=== PATIENT | female | born 1960 | race Caucasian/White ===

== ENCOUNTER 2020-11-15 11:56 | Inpatient (IN) | payer MEDICAID, OTHER ==
[~2020-11-15] VITALS: Ht 149.9 cm; Wt 46.4 kg
[2020-11-15 12:37] LABS: Basophils # (auto) 0 10 ^3/uL (0-0.2); Basophils % (auto) 0.3 % (0.0-2.0); Eosinophils # (auto) 0 10 ^3/uL (0-0.8); Hematocrit 40.2 % (36.0-46.0); Lymphocytes # (auto) 0.8 10 ^3/uL (0.4-5.4); Lymphocytes % (auto) 16.6 % (10.0-50.0); Mean Corpuscular Hemoglobin 29.3 pg (28.0-32.0); Mean Corpuscular Volume 83.7 fL (80.0-100.0); Monocytes # (auto) 0.3 10 ^3/uL (0-1.3); Monocytes % (auto) 7.3 % (0.0-12.0); Neutrophils # (auto) 3.5 10 ^3/uL (1.6-8.6); Neutrophils % (auto) 75.8 % (37.0-80.0); Nucleated Red Blood Cells % 0.3 %; Red Cell Distribution Width 13.4 % (11.8-14.3); White Blood Cell 4.6 10^3/uL (4.4-10.8)
[2020-11-15 12:54] LABS: Albumin 2.8 g/dL (3.4-5.0); Calcium 8.4 mg/dL (8.5-10.1); Potassium 3.6 mmol/L (3.5-5.1)
[2020-11-15 12:57] LABS: BUN/Creatinine Ratio 14.3; Bilirubin, Total 0.7 mg/dL (0.2-1.0); Total Protein 7.9 g/dL (6.4-8.2)
[2020-11-15] MEDS ORDERED: SODIUM CHLORIDE 0.9% 500 ML IVB ONE (13:15)
[2020-11-15] MEDS ORDERED: AZITHROMYCIN 500MG/ 250ML 250 ML IV ONE (13:15)
[2020-11-15] MEDS ORDERED: SODIUM CHLORIDE 0.9% 1,000 ML IV ONE (13:15)
[2020-11-15] MEDS ORDERED: cefTRIAXone 1GM/50ML D5W 50 ML IV ONE (13:15)
[2020-11-15 13:33] LABS: Magnesium 2.3 mg/dL (1.6-2.6)
[2020-11-15 16:03] LABS: Urine Bacteria FEW /hpf (None Seen); Urine Blood Negative /uL (Negative); Urine Hyaline Cast FEW /lpf (0 - 2); Urine Specific Gravity 1.015 (1.001-1.035); Urine WBC 4 /hpf (0 - 5)
[2020-11-15] MEDS ORDERED: HYDROcodone-ACET 5/325MG TAB PO PRN (16:15)
[2020-11-15] MEDS ORDERED: MORPHINE SULFATE INJECTION 2 MG/ML SYRG IV PRN ×2 (16:15→18:15)
[2020-11-15] MEDS ORDERED: DOCUSATE SOD 100 MG CAP PO PRN (16:15)
[2020-11-15] MEDS ORDERED: ONDANSETRON HCL 4 MG/2 ML VIAL IV PRN (16:15)
[2020-11-15] MEDS ORDERED: ACETAMINOPHEN 500 MG TAB PO PRN ×2 (16:15)
[2020-11-15] MEDS ORDERED: IOHEXOL 350 MG/ML 100ML IJ ONE (16:27)
[2020-11-15] MEDS ORDERED: NITROGLYCERIN 0.4 MG SL TAB SL PRN (18:15)
[2020-11-15] MEDS: BUDESONIDE (INHALATION) 180 MCG IH IN SCH (19:33)
[2020-11-15 23:07] VITALS: BP 140/64
[2020-11-15] MEDS: ENOXAPARIN SOD 40 MG/0.4 ML SYRINGE SC SCH (23:55)
[2020-11-16] MEDS: BUDESONIDE (INHALATION) 180 MCG IH IN SCH ×2 (10:00→22:33)
[2020-11-16] MEDS: ASCORBIC ACID 1,000 MG TAB PO SCH (10:00)
[2020-11-16] MEDS: AZITHROMYCIN 500MG/ 250ML 250 ML IV SCH (10:00)
[2020-11-16] MEDS: IVERMECTIN 3 MG TAB PO SCH (10:00)
[2020-11-16] MEDS: DexAMETHasone SOD PHOS 10MG/1ML VIAL INJ IV SCH (10:00)
[2020-11-16] MEDS: ENOXAPARIN SOD 40 MG/0.4 ML SYRINGE SC SCH ×2 (10:00→22:01)
[2020-11-16] MEDS: CHOLECALCIFEROL (VITD3) 2,000 UNIT CAP/TAB PO SCH (10:00)
[2020-11-16] MEDS: ZINC SULFATE 220mg CAP or TAB PO SCH (10:00)
[2020-11-16 17:04] VITALS: BP 116/71
[2020-11-16 17:25] VITALS: BP 116/71
[2020-11-16 22:00] VITALS: BP 100/51
[2020-11-16] MEDS: ALBUTEROL SULF HFA 90MCG INH 200DOSE IN PRN (22:34)
[2020-11-17 05:00] VITALS: BP 131/76
[2020-11-17] MEDS: ALBUTEROL SULF HFA 90MCG INH 200DOSE IN PRN ×2 (05:50→19:59)
[2020-11-17] MEDS: BUDESONIDE (INHALATION) 180 MCG IH IN SCH ×2 (05:51→19:59)
[2020-11-17 08:42] VITALS: BP 144/74
[2020-11-17] MEDS: DexAMETHasone SOD PHOS 10MG/1ML VIAL INJ IV SCH (09:33)
[2020-11-17] MEDS: AZITHROMYCIN 500MG/ 250ML 250 ML IV SCH (09:34)
[2020-11-17] MEDS: IVERMECTIN 3 MG TAB PO SCH (09:34)
[2020-11-17] MEDS: CHOLECALCIFEROL (VITD3) 2,000 UNIT CAP/TAB PO SCH (09:34)
[2020-11-17] MEDS: ZINC SULFATE 220mg CAP or TAB PO SCH (09:34)
[2020-11-17] MEDS: ASCORBIC ACID 1,000 MG TAB PO SCH (09:34)
[2020-11-17] MEDS: ENOXAPARIN SOD 40 MG/0.4 ML SYRINGE SC SCH ×2 (09:34→20:24)
[2020-11-17] MEDS ORDERED: REMDESIVIR PER PHARMACY 0 ML IV SCH (11:00)
[2020-11-17 13:00] VITALS: BP 135/74
[2020-11-17] MEDS ORDERED: REMDESIVIR 200 MG in NS 210ml LOADING DOSE ADULT IV ONE (15:00)
[2020-11-17 17:00] VITALS: BP 111/64
[2020-11-17 22:00] VITALS: BP 108/60
[2020-11-18 05:00] VITALS: BP 139/70
[2020-11-18 06:59] LABS: Albumin 2.2 g/dL (3.4-5.0); Calcium 8.4 mg/dL (8.5-10.1)
[2020-11-18 07:04] LABS: BUN/Creatinine Ratio 29.2; Bilirubin, Total 0.4 mg/dL (0.2-1.0); Total Protein 6.4 g/dL (6.4-8.2)
[2020-11-18] MEDS: BUDESONIDE (INHALATION) 180 MCG IH IN SCH ×2 (07:36→19:44)
[2020-11-18] MEDS: ALBUTEROL SULF HFA 90MCG INH 200DOSE IN PRN ×2 (07:37→19:44)
[2020-11-18] MEDS: AZITHROMYCIN 500MG/ 250ML 250 ML IV SCH (08:48)
[2020-11-18] MEDS: DexAMETHasone SOD PHOS 10MG/1ML VIAL INJ IV SCH (08:48)
[2020-11-18] MEDS: ENOXAPARIN SOD 40 MG/0.4 ML SYRINGE SC SCH ×2 (08:49→22:07)
[2020-11-18] MEDS: ASCORBIC ACID 1,000 MG TAB PO SCH (08:49)
[2020-11-18] MEDS: ZINC SULFATE 220mg CAP or TAB PO SCH (08:49)
[2020-11-18] MEDS: CHOLECALCIFEROL (VITD3) 2,000 UNIT CAP/TAB PO SCH (08:49)
[2020-11-18] MEDS: IVERMECTIN 3 MG TAB PO SCH (08:49)
[2020-11-18 09:00] VITALS: BP 114/68
[2020-11-18 13:19] VITALS: BP 134/77
[2020-11-18] MEDS: REMDESIVIR 100mg 100 MG in SODIUM CHL 0.9% 230 ML IV SCH (14:44)
[2020-11-18 17:00] VITALS: BP 141/84
[2020-11-18 22:00] VITALS: BP 123/73
[2020-11-19] VITALS (7 sets, daily range): BP systolic 108–148; BP diastolic 64–98
[2020-11-19 06:58] LABS: Albumin 2.3 g/dL (3.4-5.0); Calcium 7.9 mg/dL (8.5-10.1); Potassium 3.8 mmol/L (3.5-5.1)
[2020-11-19 07:03] LABS: BUN/Creatinine Ratio 33.3; Bilirubin, Total 0.4 mg/dL (0.2-1.0); Total Protein 6.2 g/dL (6.4-8.2)
[2020-11-19] MEDS: ZINC SULFATE 220mg CAP or TAB PO SCH (10:01)
[2020-11-19] MEDS: AZITHROMYCIN 500MG/ 250ML 250 ML IV SCH (10:01)
[2020-11-19] MEDS: DexAMETHasone SOD PHOS 10MG/1ML VIAL INJ IV SCH (10:01)
[2020-11-19] MEDS: IVERMECTIN 3 MG TAB PO SCH (10:01)
[2020-11-19] MEDS: ASCORBIC ACID 1,000 MG TAB PO SCH (10:02)
[2020-11-19] MEDS: CHOLECALCIFEROL (VITD3) 2,000 UNIT CAP/TAB PO SCH (10:02)
[2020-11-19] MEDS: ENOXAPARIN SOD 40 MG/0.4 ML SYRINGE SC SCH ×2 (10:02→21:22)
[2020-11-19] MEDS: BUDESONIDE (INHALATION) 180 MCG IH IN SCH ×2 (10:08→22:46)
[2020-11-19] MEDS: ALBUTEROL SULF HFA 90MCG INH 200DOSE IN PRN ×3 (10:08→22:47)
[2020-11-19] MEDS ORDERED: PANTOPRAZOLE 40 MG TAB PO ONE (12:00)
[2020-11-19] MEDS: REMDESIVIR 100mg 100 MG in SODIUM CHL 0.9% 230 ML IV SCH (15:00)
[2020-11-20 05:30] VITALS: BP 146/96
[2020-11-20 06:21] LABS: Basophils # (auto) 0 10 ^3/uL (0-0.2); Basophils % (auto) 0.1 % (0.0-2.0); Eosinophils # (auto) 0 10 ^3/uL (0-0.8); Hematocrit 35.5 % (36.0-46.0); Hemoglobin 12.1 g/dL (12.2-16.2); Lymphocytes # (auto) 1.1 10 ^3/uL (0.4-5.4); Lymphocytes % (auto) 19.2 % (10.0-50.0); Mean Corpuscular Hgb Conc. 34.1 g/dL (32.0-36.0); Mean Corpuscular Volume 85.1 fL (80.0-100.0); Monocytes # (auto) 0.7 10 ^3/uL (0-1.3); Neutrophils # (auto) 4.1 10 ^3/uL (1.6-8.6); Neutrophils % (auto) 69.7 % (37.0-80.0); Nucleated Red Blood Cells % 0.1 %; Red Blood Cells 4.17 10^6/uL (4.0-5.20); Red Cell Distribution Width 13.6 % (11.8-14.3); White Blood Cell 5.9 10^3/uL (4.4-10.8)
[2020-11-20 06:36] LABS: Potassium 3.7 mmol/L (3.5-5.1)
[2020-11-20 06:43] LABS: Albumin 2.1 g/dL (3.4-5.0); BUN/Creatinine Ratio 37.5; Bilirubin, Total 0.4 mg/dL (0.2-1.0); CRP High Sensitivity 0.81 mg/dL (< 0.3); Calcium 7.7 mg/dL (8.5-10.1); Magnesium 2.2 mg/dL (1.6-2.6); Total Protein 5.9 g/dL (6.4-8.2)
[2020-11-20] MEDS: DexAMETHasone SOD PHOS 10MG/1ML VIAL INJ IV SCH (08:55)
[2020-11-20] MEDS: AZITHROMYCIN 500MG/ 250ML 250 ML IV SCH (08:55)
[2020-11-20] MEDS: CHOLECALCIFEROL (VITD3) 2,000 UNIT CAP/TAB PO SCH (08:56)
[2020-11-20] MEDS: ZINC SULFATE 220mg CAP or TAB PO SCH (08:56)
[2020-11-20] MEDS: IVERMECTIN 3 MG TAB PO SCH (08:56)
[2020-11-20] MEDS: ASCORBIC ACID 1,000 MG TAB PO SCH (08:56)
[2020-11-20] MEDS: ENOXAPARIN SOD 40 MG/0.4 ML SYRINGE SC SCH (08:57)
[2020-11-20 09:00] VITALS: BP 124/65
[2020-11-20] MEDS ORDERED: PANTOPRAZOLE 40 MG TAB PO SCH (10:00)
[2020-11-20] MEDS: BUDESONIDE (INHALATION) 180 MCG IH IN SCH (10:02)
[2020-11-20] MEDS: ALBUTEROL SULF HFA 90MCG INH 200DOSE IN PRN (10:02)
[2020-11-20 12:30] VITALS: BP 125/75
[2020-11-20] MEDS: REMDESIVIR 100mg 100 MG in SODIUM CHL 0.9% 230 ML IV SCH (15:14)
[2020-11-20 16:25] VITALS: BP 112/86
[2020-11-20 17:00] VITALS: BP 132/66
== END 2020-11-20 19:10 | disposition left against medical advice (07) | DRG 137 ==
LOC: ER 11:56 → TELE 18:12 → TELE-EAST 11-16 16:44
PROVIDERS: ADMIT Nurse Practitioner Acute Care; ATTEND Internal Medicine
PROC: XW033E5 Introduction of Remdesivir Anti-infective into Peripheral Vein, Percutaneous Approach, New Technology Group 5 (ICD-10-PCS; principal; 2020-11-17)
DX: U07.1 COVID-19 (principal); J96.01 Acute respiratory failure with hypoxia; J12.82 Pneumonia due to coronavirus disease 2019; E44.0 Moderate protein-calorie malnutrition; D89.839 Cytokine release syndrome, grade unspecified; E86.0 Dehydration; N39.0 Urinary tract infection, site not specified; J98.11 Atelectasis; Z53.29 Procedure and treatment not carried out because of patient's decision for other reasons
CPT/HCPCS: 36415; 71045; 71275; 80053; 81001; 82306; 82728; 83605; 83690; 83735; 84443; 85025; 85379; 86141; 87040; 87081; 87426; 93005; 94640; 96365; 96366; 96367; 96372; 96375; G0378; J0696; J1100

== ENCOUNTER 2022-03-31 03:18 | Emergency (ER) | payer MEDICAID ==
[~2022-03-31] VITALS: Ht 149.9 cm; Wt 56.7 kg
[2022-03-31 03:40] VITALS: BP 168/92
== END 2022-03-31 10:41 | disposition left against medical advice (07) ==
LOC: ER 03:18
DX: R05.9 Cough, unspecified (principal); R06.02 Shortness of breath; Z53.21 Procedure and treatment not carried out due to patient leaving prior to being seen by health care provider

== ENCOUNTER 2022-11-03 04:47 | Emergency (ER) | payer MEDICAID ==
[~2022-11-03] VITALS: Ht 152.4 cm; Wt 56.4 kg
[2022-11-03] MEDS ORDERED: ACETAMINOPHEN 500 MG TAB PO ONE (05:15)
[2022-11-03] MEDS ORDERED: SODIUM CHLORIDE 0.9% 1,000 ML IV ONE (07:30)
[2022-11-03] MEDS ORDERED: ZINC SULFATE 220mg CAP or TAB PO ONE (07:30)
[2022-11-03] MEDS ORDERED: ASCORBIC ACID 500 MG TAB PO ONE (07:30)
[2022-11-03] MEDS ORDERED: CHOLECALCIFEROL (VITD3) 2,000 UNIT CAP/TAB PO ONE (07:30)
[2022-11-03] MEDS ORDERED: AZITHROMYCIN 500MG/ 250ML 250 ML IV ONE (07:30)
[2022-11-03 07:40] VITALS: TEMP 97.7
[2022-11-03 07:49] LABS: Basophils # (auto) 0.1 10 ^3/uL (0-0.2); Basophils % (auto) 0.7 % (0.0-2.0); Eosinophils # (auto) 0.1 10 ^3/uL (0-0.8); Hematocrit 41.3 % (36.0-46.0); Hemoglobin 13.8 g/dL (12.2-16.2); Lymphocytes # (auto) 0.6 10 ^3/uL (0.4-5.4); Lymphocytes % (auto) 4.7 % (10.0-50.0); Mean Corpuscular Hemoglobin 28.2 pg (28.0-32.0); Mean Corpuscular Hgb Conc. 33.3 g/dL (32.0-36.0); Mean Corpuscular Volume 84.5 fL (80.0-100.0); Monocytes # (auto) 0.7 10 ^3/uL (0-1.3); Neutrophils # (auto) 10.9 10 ^3/uL (1.6-8.6); Neutrophils % (auto) 87.6 % (37.0-80.0); Nucleated Red Blood Cells % 0.1 %; Red Blood Cells 4.89 10^6/uL (4.0-5.20); Red Cell Distribution Width 13.9 % (11.8-14.3); White Blood Cell 12.4 10^3/uL (4.4-10.8)
[2022-11-03 08:07] LABS: Albumin 3.6 g/dL (3.4-5.0); Calcium 8.8 mg/dL (8.5-10.1); Potassium 3.6 mmol/L (3.5-5.1)
[2022-11-03 08:10] LABS: BUN/Creatinine Ratio 13.7 (10.0-20.0); Bilirubin, Total 0.4 mg/dL (0.2-1.0); Total Protein 7.9 g/dL (6.4-8.2)
[2022-11-03 08:30] VITALS: PULSE 94; RESP 16; O2SAT 95
[2022-11-03 10:40] LABS: Urine Bacteria FEW /hpf (None Seen); Urine Blood TRACE /uL (Negative); Urine Mucus FEW (None Seen); Urine WBC <1 /hpf (0 - 5)
[2022-11-03] MEDS ORDERED: AZIT500T PO (11:16)
[2022-11-03] MEDS ORDERED: ZINC100T5 PO (11:16)
[2022-11-03] MEDS ORDERED: CHOL20007 PO (11:16)
[2022-11-03] MEDS ORDERED: ASCO500T11 PO (11:16)
[2022-11-03 12:01] VITALS: BP 181/86; PULSE 103; RESP 24; O2SAT 97
[2022-11-03] MEDS ORDERED: ONDANSETRON HCL 4 MG/2 ML VIAL IV ONE (12:15)
== END 2022-11-03 12:58 | disposition home or self-care (01) ==
LOC: ER 04:47
DX: U07.1 COVID-19 (principal); J11.1 Influenza due to unidentified influenza virus with other respiratory manifestations; R73.9 Hyperglycemia, unspecified
CPT/HCPCS: 36415; 71045; 80053; 81001; 85025; 87426; 96365; 96366; 96375; 99284; J0456; J2405; J7030